=== PATIENT | female | born 1970 | race Caucasian/White ===

== ENCOUNTER → 2024-04-14 | Outpatient (CLI) | payer OTHER ==
[~2024-04-14] MED LIST: AMLO1TAB24 PO; BISA10SU27 RC; BUSP5TA PO; CLON0.2D6 TOP; SODI1TAB6 PO; VENTAER INH
== END ==
LOC: M ONCM 14:03
PROVIDERS: ATTEND Dietitian, Registered
DX: C15.9 Malignant neoplasm of esophagus, unspecified (principal); Z71.3 Dietary counseling and surveillance; Z68.1 Body mass index [BMI] 19.9 or less, adult

== ENCOUNTER → 2024-04-20 | Outpatient (CLI) | payer OTHER | LOC: M PLARAD 10:10 | PROVIDERS: ATTEND Internal Medicine Cardiovascular Disease | DX: C15.9 Malignant neoplasm of esophagus, unspecified (principal) | CPT/HCPCS: 78815; A9552 ==

== ENCOUNTER → 2024-04-29 | Outpatient (CLI) | payer OTHER ==
[~2024-04-29] MED LIST changes: +AUGM500T34 PO; +BACT800T5 PO; +DOCU5LIQ
== END ==
LOC: M ONCR 14:57
PROVIDERS: ATTEND General Practice
DX: C15.3 Malignant neoplasm of upper third of esophagus (principal); R50.9 Fever, unspecified; R91.8 Other nonspecific abnormal finding of lung field; Z71.2 Person consulting for explanation of examination or test findings; Z80.42 Family history of malignant neoplasm of prostate; Z80.8 Family history of malignant neoplasm of other organs or systems; Z80.1 Family history of malignant neoplasm of trachea, bronchus and lung; Z87.891 Personal history of nicotine dependence; J30.89 Other allergic rhinitis; Z79.899 Other long term (current) drug therapy
CPT/HCPCS: G0463; G2212

== ENCOUNTER → 2024-05-18 | Outpatient (CLI) | payer OTHER ==
[~2024-05-18] MED LIST changes: +LIDOCAINE 1% MDV 20ML VIAL As Ordered ONE
[2024-05-18 08:15] VITALS: TEMP 97.3
[2024-05-18 11:45] VITALS: BP 132/79; O2SAT 98
== END ==
LOC: M IRPRO 08:07
PROVIDERS: ATTEND Internal Medicine Medical Oncology
DX: R91.8 Other nonspecific abnormal finding of lung field (principal); C15.9 Malignant neoplasm of esophagus, unspecified

== ENCOUNTER → 2024-05-28 | Outpatient (CLI) | payer OTHER ==
[~2024-05-28] MED LIST changes: +ACET160L16 GT; -DOCU5LIQ; +DOCU5LIQ GT; -LIDOCAINE 1% MDV 20ML VIAL As Ordered ONE; +ONDA-284 PO; +POLY510P14; +PROC10TA5 PO
== END ==
LOC: M ONCR 14:04
PROVIDERS: ATTEND General Practice
DX: C15.3 Malignant neoplasm of upper third of esophagus (principal); R91.8 Other nonspecific abnormal finding of lung field; J30.89 Other allergic rhinitis; Z79.899 Other long term (current) drug therapy; Z87.891 Personal history of nicotine dependence; Z93.1 Gastrostomy status

== ENCOUNTER → 2024-05-28 | Outpatient (CLI) | payer OTHER ==
[~2024-05-28] MED LIST changes: -ACET160L16 GT; +DOCU5LIQ; -DOCU5LIQ GT; -ONDA-284 PO; -POLY510P14; -PROC10TA5 PO
== END ==
LOC: M RAD 15:27
PROVIDERS: ATTEND Internal Medicine Medical Oncology
DX: J98.4 Other disorders of lung (principal); C15.9 Malignant neoplasm of esophagus, unspecified

== ENCOUNTER 2024-06-04 13:53 | Outpatient (RCR) | payer OTHER | END 2024-06-10 | LOC: M ONCR 13:53 | PROVIDERS: ATTEND General Practice | DX: Z51.0 Encounter for antineoplastic radiation therapy (principal); C15.3 Malignant neoplasm of upper third of esophagus ==

== ENCOUNTER → 2024-06-22 | Outpatient (CLI) | payer OTHER ==
[~2024-06-22] MED LIST changes: +ACET160L16; +ONDA-284 PO; +POLY510P14; +PROC10TA5 PO
== END ==
LOC: M RAD 16:11
PROVIDERS: ATTEND Dietitian, Registered
DX: C15.9 Malignant neoplasm of esophagus, unspecified (principal); J98.4 Other disorders of lung

== ENCOUNTER 2024-06-29 15:36 | Inpatient (IN) | payer OTHER ==
[~2024-06-29] VITALS: Ht 162.6 cm; Wt 36.6 kg
[~2024-06-29 15:36] MED LIST changes: -ACET160L16; +ACET160L16 GT; -DOCU5LIQ; +DOCU5LIQ GT
[2024-06-29 16:20] LABS: BASO # 0.1 10^3/uL (0.0-0.2); BASO % 0.4 % (0.0-1.0); EOS % 0.1 % (0.0-3.0); HEMATOCRIT 32.7 % (36.0-47.0); HEMOGLOBIN 10.5 g/dl (12.0-15.5); LYMPH % 6.4 % (24.0-44.0); MEAN CORPUSCULAR HEMOGLOBIN 28.6 pg (27.0-33.0); MEAN CORPUSCULAR HGB CONC 32.1 g/dl (32.0-36.5); MEAN CORPUSCULAR VOLUME 89.1 fl (80.0-96.0); MONO # 1.7 10^3/uL (0.0-0.8); MONO % 10.3 % (2.0-8.0); NEUTROPHILS # 13.4 10^3/uL (1.5-8.5); NEUTROPHILS % 81.6 % (36.0-66.0); PLATELET COUNT, AUTOMATED 653 10^3/uL (150-450); RED BLOOD COUNT 3.67 10^6/uL (4.00-5.40); WHITE BLOOD COUNT 16.4 10^3/uL (4.0-10.0)
[2024-06-29 16:52] LABS: ALBUMIN 2.4 G/DL (3.2-5.2); ALKALINE PHOSPHATASE 140 U/L (46-116); ALT/SGPT 44 U/L (7.0-40); AST/SGOT 25 U/L (<34); BILIRUBIN,TOTAL 0.6 MG/DL (0.3-1.2); BLOOD UREA NITROGEN 13 MG/DL (9-23); CARBON DIOXIDE LEVEL 29 MMOL/L (20-31); CHLORIDE LEVEL 94 MMOL/L (98-107); CREATININE FOR GFR 0.26 MG/DL (0.55-1.30); GLOMERULAR FILTRATION RATE > 60.0 (>51); GLUCOSE, FASTING 108 MG/DL (60-100); POTASSIUM SERUM 4.4 MMOL/L (3.5-5.1); SODIUM LEVEL 127 MMOL/L (136-145); TOTAL PROTEIN 7.5 G/DL (5.7-8.2)
[2024-06-29 17:12] LABS: CK-MB VALUE MASS < 1.0 NG/ML (<3.6)
[2024-06-29 17:13] LABS: CPK CREATINE PHOSPHOKINASE 17 U/L (34-145); MB/CK RELATIVE INDEX 5.88 (< OR =4)
[2024-06-29] MEDS: NS 500 ML IV ONE (17:20)
[2024-06-29] MEDS: PIPERACILLIN/TAZOBACTAM SOD 4.5 GM in D5W MINI-BAG PLUS 50 ML IV ONE (17:20)
[2024-06-29] MEDS ORDERED: ISOVUE-370 76% 100ML VIAL As Ordered ONE (17:20)
[2024-06-29] MEDS: ACETAMINOPHEN TAB 650MG DOSE (2X325MG) PO ONE (17:20)
[2024-06-29 17:22] LABS: RSV AMPLIFICATION NEGATIVE (NEGATIVE)
[2024-06-29] MEDS: NS 1,000 ML IV SCH ×2 (19:03→20:00)
[2024-06-29] MEDS ORDERED: HOME MED LIST COMPLETE! XX SCH (19:10)
[2024-06-29 19:37] LABS: MAGNESIUM LEVEL 1.7 MG/DL (1.8-2.4)
[2024-06-29 19:51] LABS: PROCALCITONIN 0.12 ng/ml
[2024-06-29] MEDS ORDERED: VANCOMYCIN HCL IV ONE (20:00)
[2024-06-29] MEDS ORDERED: BISACODYL 10MG SUPP PR PRN (20:00)
[2024-06-29] MEDS ORDERED: VANCOMYCIN HCL IV SCH (20:00)
[2024-06-29] MEDS ORDERED: LEVALBUTEROL 1.25MG 0.5ML CONCENTRATE NEB INH PRN (20:00)
[2024-06-29] MEDS ORDERED: SODIUM CHLORIDE 0.9% INJ 10 ML SYR IV PRN (20:00)
[2024-06-29] MEDS ORDERED: FLUID PLACE HOLDER IV ONE (20:00)
[2024-06-29] MEDS ORDERED: FLUID PLACE HOLDER IV SCH (20:00)
[2024-06-29] MEDS ORDERED: MOM 30ML SUSPENSION UDC PEG PRN (20:00)
[2024-06-29] MEDS ORDERED: MAALOX 30 ML SUSP *UDC PO PRN (20:00)
[2024-06-29 20:11] LABS: HIV 1&2 SCREEN NEGATIVE (NEGATIVE)
[2024-06-29] MEDS ORDERED: VANCOMYCIN HCL 1,000 MG, VIAL MATE ADAPTER 1 EACH in NS 250 ML IV SCH (20:30)
[2024-06-29] MEDS: IPRATROPIUM 0.5MG/ALBUTEROL 2.5MG INH SOL UD 3ML (DUONEB) INH SCH (21:08)
[2024-06-29 22:10] LABS: VENOUS BASE EXCESS 0.8 (-2.0-2.0); VENOUS HCO3 24.1 MMOL/L (23.0-27.0); VENOUS O2 SATURATION 95.7 % (60.0-80.0); VENOUS PARTIAL PRESSURE CO2 33.7 mmHg (38.0-50.0); VENOUS PARTIAL PRESSURE O2 75.9 mmHg (30.0-50.0); VENOUS PH 7.472 UNITS (7.330-7.430); VENOUS STANDARD HCO3 25.2 MMOL/L; VENOUS TOTAL CO2 25.1 MMOL/L (24.0-28.0)
[2024-06-29] MEDS: VANCOMYCIN HCL 750 MG, VIAL MATE ADAPTER 1 EACH in D5W 250 ML IV ONE (22:37)
[2024-06-29] MEDS: DOCUSATE SOD LIQ 100MG/10ML UDC GT SCH (22:37)
[2024-06-29 22:39] LABS: INR 1.23; PARTIAL THROMBOPLASTIN TIME 26.3 SECONDS (24.8-34.2); PROTHROMBIN TIME 15.1 SECONDS (12.5-14.5)
[2024-06-29 23:59] VITALS: BP 107/72; TEMP 98.2; O2SAT 92
[2024-06-30] VITALS (17 sets, daily range): BP systolic 102–116; BP diastolic 58–70; PULSE 107; TEMP 97.6–101.4; O2SAT 84–95
[2024-06-30] MEDS: PIPERACILLIN/TAZOBACTAM SOD 4.5 GM in D5W MINI-BAG PLUS 50 ML IV SCH (00:45)
[2024-06-30] MEDS: LevoFLOXacin IV 750 MG in IV 1 EA IV SCH (04:17)
[2024-06-30] MEDS: HEPARIN SOD (PORCINE) 5000UNITS/ML 1ML VIAL/SYRINGE SC SCH (06:17)
[2024-06-30 06:39] LABS: HEMATOCRIT 25.3 % (36.0-47.0); MEAN CORPUSCULAR HEMOGLOBIN 29.2 pg (27.0-33.0); MEAN CORPUSCULAR HGB CONC 32.8 g/dl (32.0-36.5); MEAN CORPUSCULAR VOLUME 89.1 fl (80.0-96.0); PLATELET COUNT, AUTOMATED 559 10^3/uL (150-450); RED BLOOD COUNT 2.84 10^6/uL (4.00-5.40); WHITE BLOOD COUNT 12.3 10^3/uL (4.0-10.0)
[2024-06-30 06:45] LABS: HEMOGLOBIN 8.3 g/dl (12.0-15.5)
[2024-06-30 07:21] LABS: PROCALCITONIN 0.17 ng/ml
[2024-06-30 07:22] LABS: VANCOMYCIN RANDOM 6.6 UG/ML
[2024-06-30 07:31] LABS: ALBUMIN 1.7 G/DL (3.2-5.2); ALKALINE PHOSPHATASE 100 U/L (46-116); ALT/SGPT 28 U/L (7.0-40); AST/SGOT 14 U/L (<34); BILIRUBIN,TOTAL 0.5 MG/DL (0.3-1.2); BLOOD UREA NITROGEN 11 MG/DL (9-23); CALCIUM LEVEL 7.7 MG/DL (8.5-10.1); CARBON DIOXIDE LEVEL 25 MMOL/L (20-31); CHLORIDE LEVEL 97 MMOL/L (98-107); CREATININE FOR GFR 0.22 MG/DL (0.55-1.30); GLOMERULAR FILTRATION RATE > 60.0 (>51); GLUCOSE, FASTING 267 MG/DL (60-100); MAGNESIUM LEVEL 1.6 MG/DL (1.8-2.4); POTASSIUM SERUM 4.2 MMOL/L (3.5-5.1); SODIUM LEVEL 129 MMOL/L (136-145); TOTAL PROTEIN 5.4 G/DL (5.7-8.2)
[2024-06-30] MEDS ORDERED: VANCOMYCIN HCL 500 MG in D5W MINI-BAG PLUS 100 ML IV SCH (08:00)
[2024-06-30] MEDS ORDERED: SODIUM CHLORIDE 0.9% INJ 10 ML SYR IV SCH (09:00)
[2024-06-30] MEDS: MAG SULF 1GM/100ML (MAG RUN) 1 GM in IV 1 EA IV SCH (09:13)
[2024-06-30] MEDS: VANCOMYCIN HCL 1,000 MG, VIAL MATE ADAPTER 1 EACH in D5W 250 ML IV SCH (11:05)
[2024-06-30] MEDS ORDERED: INSULIN LISPRO (NovoLOG) PER UNIT SC SCH ×3 (12:00→21:00)
[2024-06-30] MEDS ORDERED: GLUCOSE 4 GM CHEW PO PRN ×2 (13:05→13:50)
[2024-06-30] MEDS ORDERED: DEXTROSE 50% 50ML SYRINGE IV PRN ×2 (13:05→13:50)
[2024-06-30] MEDS ORDERED: GLUCAGON INJ 1MG VIAL SC PRN ×2 (13:05→13:50)
[2024-06-30] MEDS ORDERED: VANCOMYCIN HCL 750 MG, VIAL MATE ADAPTER 1 EACH in D5W 250 ML IV SCH (16:00)
[2024-06-30] MEDS ORDERED: MAG SULF 1GM/100ML (MAG RUN) 1 GM in IV 1 EA IV SCH (16:00)
[2024-06-30] MEDS: INSULIN LISPRO (NovoLOG) PER UNIT SC SCH (17:30)
[2024-06-30] MEDS: ONDANSETRON 4MG 2ML VIAL IV ONE (21:11)
[2024-06-30] MEDS: BALMEX CREAM 60GM EXT SCH (21:12)
[2024-06-30] MEDS: ACETAMINOPHEN TAB 650MG DOSE (2X325MG) PEG PRN (23:37)
[2024-07-01 05:00] VITALS: BP 94/62; TEMP 98.1; O2SAT 95
[2024-07-01 05:21] LABS: BASO % 0.5 % (0.0-1.0); EOS % 0.2 % (0.0-3.0); HEMATOCRIT 25.5 % (36.0-47.0); HEMOGLOBIN 8.3 g/dl (12.0-15.5); LYMPH # 0.9 10^3/uL (1.5-5.0); MEAN CORPUSCULAR HEMOGLOBIN 28.3 pg (27.0-33.0); MEAN CORPUSCULAR HGB CONC 32.5 g/dl (32.0-36.5); MONO # 1.3 10^3/uL (0.0-0.8); MONO % 15.6 % (2.0-8.0); NEUTROPHILS # 5.8 10^3/uL (1.5-8.5); NEUTROPHILS % 72.1 % (36.0-66.0); PLATELET COUNT, AUTOMATED 560 10^3/uL (150-450); RED BLOOD COUNT 2.93 10^6/uL (4.00-5.40); WHITE BLOOD COUNT 8.1 10^3/uL (4.0-10.0)
[2024-07-01 05:47] LABS: BLOOD UREA NITROGEN 8 MG/DL (9-23); CALCIUM LEVEL 7.6 MG/DL (8.5-10.1); CARBON DIOXIDE LEVEL 28 MMOL/L (20-31); CHLORIDE LEVEL 98 MMOL/L (98-107); CREATININE FOR GFR 0.22 MG/DL (0.55-1.30); GLOMERULAR FILTRATION RATE > 60.0 (>51); GLUCOSE, FASTING 140 MG/DL (60-100); MAGNESIUM LEVEL 1.8 MG/DL (1.8-2.4); POTASSIUM SERUM 3.7 MMOL/L (3.5-5.1); SODIUM LEVEL 130 MMOL/L (136-145)
[2024-07-01 07:31] VITALS: BP 101/62; TEMP 96.6; O2SAT 94
[2024-07-01] MEDS ORDERED: LORazepam 0.5 MG TAB PO PRN (14:40)
[2024-07-01] MEDS: LORazepam 0.5 MG TAB GT PRN (14:59)
[2024-07-01 17:29] VITALS: BP 101/64; TEMP 98.8; O2SAT 96
[2024-07-01 20:42] VITALS: BP 98/58; TEMP 98.7; O2SAT 98
[2024-07-02 03:09] VITALS: BP 107/61; TEMP 97.2; O2SAT 93
[2024-07-02 05:57] LABS: BLOOD UREA NITROGEN 9 MG/DL (9-23); CALCIUM LEVEL 7.7 MG/DL (8.5-10.1); CARBON DIOXIDE LEVEL 25 MMOL/L (20-31); CHLORIDE LEVEL 99 MMOL/L (98-107); CREATININE FOR GFR 0.23 MG/DL (0.55-1.30); GLOMERULAR FILTRATION RATE > 60.0 (>51); GLUCOSE, FASTING 110 MG/DL (60-100); MAGNESIUM LEVEL 1.7 MG/DL (1.8-2.4); POTASSIUM SERUM 4.1 MMOL/L (3.5-5.1); SODIUM LEVEL 129 MMOL/L (136-145)
[2024-07-02 06:15] LABS: BASO % 0.4 % (0.0-1.0); EOS % 0.1 % (0.0-3.0); HEMOGLOBIN 8.4 g/dl (12.0-15.5); LYMPH # 0.9 10^3/uL (1.5-5.0); LYMPH % 9.6 % (24.0-44.0); MEAN CORPUSCULAR HEMOGLOBIN 28.4 pg (27.0-33.0); MEAN CORPUSCULAR HGB CONC 32.3 g/dl (32.0-36.5); MEAN CORPUSCULAR VOLUME 87.8 fl (80.0-96.0); MONO # 1.3 10^3/uL (0.0-0.8); MONO % 14.9 % (2.0-8.0); NEUTROPHILS # 6.6 10^3/uL (1.5-8.5); PLATELET COUNT, AUTOMATED 593 10^3/uL (150-450); RED BLOOD COUNT 2.96 10^6/uL (4.00-5.40); WHITE BLOOD COUNT 8.9 10^3/uL (4.0-10.0)
[2024-07-02 07:42] VITALS: BP 96/54; TEMP 97.4; O2SAT 96
[2024-07-02] MEDS ORDERED: SODIUM CHLORIDE 1 GM TAB PO SCH (09:00)
[2024-07-02] MEDS ORDERED: busPIRone 5 MG TAB PO SCH (09:00)
[2024-07-02] MEDS ORDERED: FUROSEMIDE 10MG PER 1/2 TABLET PO SCH (09:00)
[2024-07-02] MEDS: SODIUM CHLORIDE 1 GM TAB GT SCH (09:00)
[2024-07-02] MEDS ORDERED: MAALOX 30 ML SUSP *UDC GT PRN (09:30)
[2024-07-02] MEDS: MAG SULF 1GM/100ML (MAG RUN) 1 GM in IV 1 EA IV SCH (11:20)
[2024-07-02] MEDS: FUROSEMIDE 10MG PER 1/2 TABLET GT SCH (11:55)
[2024-07-02] MEDS: PROCHLORPERAZINE 5MG TAB GT SCH (11:56)
[2024-07-02] MEDS: busPIRone 5 MG TAB GT SCH (11:56)
[2024-07-02] MEDS: ONDANSETRON 4MG ORAL DISINTEGRATING TAB GT SCH (11:56)
[2024-07-02] MEDS ORDERED: PROCHLORPERAZINE 5MG TAB PO SCH (12:00)
[2024-07-02] MEDS ORDERED: ONDANSETRON 4MG ORAL DISINTEGRATING TAB PO SCH (12:00)
[2024-07-02 18:09] VITALS: BP 98/56; TEMP 97.6; O2SAT 97
[2024-07-02 19:21] VITALS: BP 96/53; TEMP 98; O2SAT 93
[2024-07-02 23:11] VITALS: BP 106/57; TEMP 98; O2SAT 94
[2024-07-03 03:08] VITALS: BP 97/53; TEMP 96.9; O2SAT 94
[2024-07-03 04:18] LABS: BASO % 0.5 % (0.0-1.0); EOS % 0.3 % (0.0-3.0); HEMATOCRIT 25.4 % (36.0-47.0); HEMOGLOBIN 8.2 g/dl (12.0-15.5); LYMPH # 0.9 10^3/uL (1.5-5.0); LYMPH % 11.9 % (24.0-44.0); MEAN CORPUSCULAR HEMOGLOBIN 28.2 pg (27.0-33.0); MEAN CORPUSCULAR HGB CONC 32.3 g/dl (32.0-36.5); MEAN CORPUSCULAR VOLUME 87.3 fl (80.0-96.0); MONO % 12.9 % (2.0-8.0); NEUTROPHILS # 5.7 10^3/uL (1.5-8.5); NEUTROPHILS % 73.1 % (36.0-66.0); PLATELET COUNT, AUTOMATED 624 10^3/uL (150-450); RED BLOOD COUNT 2.91 10^6/uL (4.00-5.40); WHITE BLOOD COUNT 7.7 10^3/uL (4.0-10.0)
[2024-07-03 04:41] LABS: BLOOD UREA NITROGEN 9 MG/DL (9-23); CALCIUM LEVEL 7.8 MG/DL (8.5-10.1); CARBON DIOXIDE LEVEL 25 MMOL/L (20-31); CHLORIDE LEVEL 102 MMOL/L (98-107); CREATININE FOR GFR 0.23 MG/DL (0.55-1.30); GLOMERULAR FILTRATION RATE > 60.0 (>51); GLUCOSE, FASTING 121 MG/DL (60-100); MAGNESIUM LEVEL 1.8 MG/DL (1.8-2.4); POTASSIUM SERUM 4.3 MMOL/L (3.5-5.1); SODIUM LEVEL 131 MMOL/L (136-145)
[2024-07-03 07:25] VITALS: BP 97/60; TEMP 97; O2SAT 95
[2024-07-03] MEDS ORDERED: MAG SULF 1GM/100ML (MAG RUN) 1 GM in IV 1 EA IV SCH (07:50)
[2024-07-03] MEDS: MAG SULF 1GM/100ML (MAG RUN) 1 GM in IV 1 EA IV SCH (08:53)
[2024-07-03] MEDS: AMPICILLIN SOD/SULBACTAM SOD 3 GM in D5W MINI-BAG PLUS 100 ML IV SCH (11:55)
[2024-07-03 12:00] VITALS: BP 100/59; TEMP 97; O2SAT 95
[2024-07-03 17:55] VITALS: BP 105/65; TEMP 97.3; O2SAT 95
[2024-07-03 19:19] VITALS: BP 101/59; TEMP 97.3; O2SAT 95
[2024-07-04 03:09] VITALS: BP 112/66; TEMP 97.9; O2SAT 94
[2024-07-04 06:13] LABS: BASO % 0.4 % (0.0-1.0); EOS # 0.1 10^3/uL (0.0-0.5); EOS % 0.6 % (0.0-3.0); HEMATOCRIT 27.4 % (36.0-47.0); HEMOGLOBIN 8.7 g/dl (12.0-15.5); LYMPH % 12.4 % (24.0-44.0); MEAN CORPUSCULAR HEMOGLOBIN 27.9 pg (27.0-33.0); MEAN CORPUSCULAR HGB CONC 31.8 g/dl (32.0-36.5); MEAN CORPUSCULAR VOLUME 87.8 fl (80.0-96.0); MONO % 12.6 % (2.0-8.0); NEUTROPHILS # 5.6 10^3/uL (1.5-8.5); NEUTROPHILS % 72.1 % (36.0-66.0); PLATELET COUNT, AUTOMATED 651 10^3/uL (150-450); RED BLOOD COUNT 3.12 10^6/uL (4.00-5.40); WHITE BLOOD COUNT 7.7 10^3/uL (4.0-10.0)
[2024-07-04 06:40] LABS: BLOOD UREA NITROGEN 9 MG/DL (9-23); CALCIUM LEVEL 8.1 MG/DL (8.5-10.1); CARBON DIOXIDE LEVEL 26 MMOL/L (20-31); CHLORIDE LEVEL 101 MMOL/L (98-107); CREATININE FOR GFR 0.24 MG/DL (0.55-1.30); GLOMERULAR FILTRATION RATE > 60.0 (>51); GLUCOSE, FASTING 118 MG/DL (60-100); MAGNESIUM LEVEL 1.7 MG/DL (1.8-2.4); POTASSIUM SERUM 4.6 MMOL/L (3.5-5.1); SODIUM LEVEL 132 MMOL/L (136-145)
[2024-07-04 07:28] VITALS: BP 130/70; TEMP 98.6; O2SAT 94
[2024-07-04] MEDS: MAG SULF 1GM/100ML (MAG RUN) 1 GM in IV 1 EA IV SCH (11:55)
[2024-07-04 12:00] VITALS: BP 124/70; TEMP 98.4; O2SAT 95
[2024-07-04 15:56] VITALS: BP 100/65; TEMP 97.9; O2SAT 95
[2024-07-04 19:26] VITALS: BP 128/67; TEMP 97; O2SAT 99
[2024-07-04] MEDS: MAGNESIUM OXIDE 400MG TAB (MAG-OX) PO SCH (21:38)
[2024-07-05 03:03] VITALS: BP 145/77; TEMP 97.2; O2SAT 94
[2024-07-05 07:40] VITALS: BP 146/85; TEMP 96.9; O2SAT 93
[2024-07-05 08:42] LABS: BASO % 0.5 % (0.0-1.0); EOS # 0.1 10^3/uL (0.0-0.5); EOS % 0.6 % (0.0-3.0); HEMATOCRIT 30.6 % (36.0-47.0); HEMOGLOBIN 9.9 g/dl (12.0-15.5); LYMPH % 11.6 % (24.0-44.0); MEAN CORPUSCULAR HEMOGLOBIN 28.4 pg (27.0-33.0); MEAN CORPUSCULAR HGB CONC 32.4 g/dl (32.0-36.5); MEAN CORPUSCULAR VOLUME 87.9 fl (80.0-96.0); MONO # 0.8 10^3/uL (0.0-0.8); MONO % 9.7 % (2.0-8.0); NEUTROPHILS # 6.6 10^3/uL (1.5-8.5); NEUTROPHILS % 75.5 % (36.0-66.0); PLATELET COUNT, AUTOMATED 682 10^3/uL (150-450); RED BLOOD COUNT 3.48 10^6/uL (4.00-5.40); WHITE BLOOD COUNT 8.7 10^3/uL (4.0-10.0)
[2024-07-05 09:06] LABS: BLOOD UREA NITROGEN 9 MG/DL (9-23); CALCIUM LEVEL 8.1 MG/DL (8.5-10.1); CARBON DIOXIDE LEVEL 27 MMOL/L (20-31); CHLORIDE LEVEL 97 MMOL/L (98-107); CREATININE FOR GFR 0.23 MG/DL (0.55-1.30); GLOMERULAR FILTRATION RATE > 60.0 (>51); GLUCOSE, FASTING 209 MG/DL (60-100); MAGNESIUM LEVEL 1.5 MG/DL (1.8-2.4); POTASSIUM SERUM 4.5 MMOL/L (3.5-5.1); SODIUM LEVEL 127 MMOL/L (136-145)
[2024-07-05] MEDS: MAG SULF 1GM/100ML (MAG RUN) 1 GM in IV 1 EA IV SCH (12:36)
[2024-07-05] MEDS: MOM 30ML SUSPENSION UDC GT PRN (12:51)
[2024-07-05 16:17] VITALS: BP 119/76; TEMP 98.5; O2SAT 95
[2024-07-06] VITALS: BP 128/73; TEMP 97.2; O2SAT 94
[2024-07-06 05:48] LABS: BASO # 0.1 10^3/uL (0.0-0.2); BASO % 0.6 % (0.0-1.0); EOS # 0.1 10^3/uL (0.0-0.5); EOS % 0.8 % (0.0-3.0); HEMATOCRIT 32.2 % (36.0-47.0); HEMOGLOBIN 10.4 g/dl (12.0-15.5); LYMPH # 1.1 10^3/uL (1.5-5.0); LYMPH % 13.7 % (24.0-44.0); MEAN CORPUSCULAR HEMOGLOBIN 28.4 pg (27.0-33.0); MEAN CORPUSCULAR HGB CONC 32.3 g/dl (32.0-36.5); MONO # 0.9 10^3/uL (0.0-0.8); MONO % 10.4 % (2.0-8.0); NEUTROPHILS % 72.3 % (36.0-66.0); PLATELET COUNT, AUTOMATED 688 10^3/uL (150-450); RED BLOOD COUNT 3.66 10^6/uL (4.00-5.40); WHITE BLOOD COUNT 8.3 10^3/uL (4.0-10.0)
[2024-07-06 05:54] LABS: BLOOD UREA NITROGEN 12 MG/DL (9-23); CALCIUM LEVEL 8.7 MG/DL (8.5-10.1); CARBON DIOXIDE LEVEL 26 MMOL/L (20-31); CHLORIDE LEVEL 98 MMOL/L (98-107); CREATININE FOR GFR 0.25 MG/DL (0.55-1.30); GLOMERULAR FILTRATION RATE > 60.0 (>51); GLUCOSE, FASTING 123 MG/DL (60-100); POTASSIUM SERUM 5.3 MMOL/L (3.5-5.1); SODIUM LEVEL 129 MMOL/L (136-145)
[2024-07-06 07:56] VITALS: BP 123/80; TEMP 97.6; O2SAT 97
[2024-07-06] MEDS: FUROSEMIDE 20MG/2ML VIAL IV ONE (10:25)
[2024-07-06] MEDS: NS 500 ML IV ONE (10:25)
[2024-07-06] MEDS: AUGMENTIN 875 MG TAB GT SCH (14:46)
[2024-07-06 16:00] VITALS: BP 126/74; TEMP 97.4; O2SAT 95
[2024-07-06 16:47] LABS: BLOOD UREA NITROGEN 14 MG/DL (9-23); CALCIUM LEVEL 8.8 MG/DL (8.5-10.1); CARBON DIOXIDE LEVEL 28 MMOL/L (20-31); CHLORIDE LEVEL 97 MMOL/L (98-107); CREATININE FOR GFR 0.24 MG/DL (0.55-1.30); GLOMERULAR FILTRATION RATE > 60.0 (>51); GLUCOSE, FASTING 116 MG/DL (60-100); POTASSIUM SERUM 4.9 MMOL/L (3.5-5.1); SODIUM LEVEL 128 MMOL/L (136-145)
[2024-07-06] MEDS ORDERED: AUGMENTIN 875 MG TAB PO SCH (21:00)
[2024-07-07 00:13] VITALS: BP 133/78; TEMP 97.2; O2SAT 98
[2024-07-07 04:25] VITALS: BP 125/77; TEMP 98.1; O2SAT 96
[2024-07-07 06:08] LABS: BASO # 0.1 10^3/uL (0.0-0.2); BASO % 0.6 % (0.0-1.0); EOS # 0.1 10^3/uL (0.0-0.5); EOS % 0.8 % (0.0-3.0); HEMATOCRIT 31.1 % (36.0-47.0); HEMOGLOBIN 9.9 g/dl (12.0-15.5); LYMPH # 1.1 10^3/uL (1.5-5.0); LYMPH % 12.6 % (24.0-44.0); MEAN CORPUSCULAR HEMOGLOBIN 28.2 pg (27.0-33.0); MEAN CORPUSCULAR HGB CONC 31.8 g/dl (32.0-36.5); MEAN CORPUSCULAR VOLUME 88.6 fl (80.0-96.0); MONO # 0.8 10^3/uL (0.0-0.8); MONO % 8.5 % (2.0-8.0); NEUTROPHILS # 6.8 10^3/uL (1.5-8.5); NEUTROPHILS % 75.6 % (36.0-66.0); PLATELET COUNT, AUTOMATED 706 10^3/uL (150-450); RED BLOOD COUNT 3.51 10^6/uL (4.00-5.40)
[2024-07-07 06:30] LABS: BLOOD UREA NITROGEN 13 MG/DL (9-23); CALCIUM LEVEL 8.8 MG/DL (8.5-10.1); CARBON DIOXIDE LEVEL 28 MMOL/L (20-31); CHLORIDE LEVEL 98 MMOL/L (98-107); CREATININE FOR GFR 0.26 MG/DL (0.55-1.30); GLOMERULAR FILTRATION RATE > 60.0 (>51); GLUCOSE, FASTING 108 MG/DL (60-100); POTASSIUM SERUM 4.8 MMOL/L (3.5-5.1); SODIUM LEVEL 130 MMOL/L (136-145)
[2024-07-07] MEDS ORDERED: AMOX875T2 PO (11:47)
[2024-07-07 11:54] VITALS: BP 123/76; TEMP 98.8; O2SAT 96
[2024-07-07] MEDS ORDERED: AMOX875T2 GT (11:55)
[2024-07-07] MEDS ORDERED: ASPI-655 GT (11:55)
[2024-07-07 13:22] LABS: QuantiFERON-TB Gold Plus NEGATIVE (NEGATIVE)
== END 2024-07-07 13:14 | disposition home health service (06) | DRG 720 ==
LOC: M ED 15:36 → M ED INP 19:56 → M PCU 23:49 → M MS5PR 07-01 13:47 → M PCU 07-01 13:57 → M MSPAV 07-07 04:15
PROVIDERS: ADMIT Preventive Medicine Undersea and Hyperbaric Medicine; ATTEND Internal Medicine
PROC: 0DW6XUZ Revision of Feeding Device in Stomach, External Approach (ICD-10-PCS; principal; 2024-06-30)
DX: A41.9 Sepsis, unspecified organism (principal); C15.9 Malignant neoplasm of esophagus, unspecified; J85.1 Abscess of lung with pneumonia; E22.2 Syndrome of inappropriate secretion of antidiuretic hormone; I10 Essential (primary) hypertension; D64.9 Anemia, unspecified; T85.528A Displacement of other gastrointestinal prosthetic devices, implants and grafts, initial encounter; N39.0 Urinary tract infection, site not specified; I25.2 Old myocardial infarction; Z83.3 Family history of diabetes mellitus; Z87.891 Personal history of nicotine dependence; Z79.899 Other long term (current) drug therapy; E11.9 Type 2 diabetes mellitus without complications; I25.10 Atherosclerotic heart disease of native coronary artery without angina pectoris

== ENCOUNTER 2024-07-10 13:28 | Outpatient (RCR) | payer OTHER ==
[~2024-07-10 13:28] MED LIST changes: +AMOX875T2 GT; +AMOX875T2 PO; +ASPI-655 GT
[2024-07-22] MEDS ORDERED: LIDO15SO8 PO (16:22)
== END 2024-07-11 ==
LOC: M ONCR 13:28
PROVIDERS: ATTEND General Practice
DX: Z51.0 Encounter for antineoplastic radiation therapy (principal); C15.3 Malignant neoplasm of upper third of esophagus

== ENCOUNTER 2024-07-31 15:30 | Outpatient (RCR) | payer OTHER ==
[~2024-07-31 15:30] MED LIST changes: +LIDO15SO8 PO
== END 2024-08-10 ==
LOC: M ONCR 15:30
PROVIDERS: ATTEND General Practice
DX: Z51.0 Encounter for antineoplastic radiation therapy (principal); C15.3 Malignant neoplasm of upper third of esophagus

== ENCOUNTER → 2024-09-08 | Outpatient (CLI) | payer OTHER | LOC: M ONCM 07:24 | PROVIDERS: ATTEND Dietitian, Registered | DX: C15.9 Malignant neoplasm of esophagus, unspecified (principal); Z71.3 Dietary counseling and surveillance; Z68.1 Body mass index [BMI] 19.9 or less, adult ==

== ENCOUNTER → 2024-09-10 | Outpatient (CLI) | payer OTHER ==
[~2024-09-10] MED LIST changes: +GASTROGRAFIN SOLUTION 30ML As Ordered ONE; +ISOVUE-370 76% 100ML VIAL As Ordered ONE
== END ==
LOC: M RAD 08:55
PROVIDERS: ATTEND Internal Medicine Medical Oncology
DX: C15.9 Malignant neoplasm of esophagus, unspecified (principal)
CPT/HCPCS: 71260; 74177; Q9963; Q9967

== ENCOUNTER → 2024-09-28 | Outpatient (CLI) | payer OTHER ==
[~2024-09-28] MED LIST changes: -GASTROGRAFIN SOLUTION 30ML As Ordered ONE; -ISOVUE-370 76% 100ML VIAL As Ordered ONE
== END ==
LOC: M ONCR 15:12
PROVIDERS: ATTEND General Practice
DX: C15.3 Malignant neoplasm of upper third of esophagus (principal); J18.9 Pneumonia, unspecified organism; Z87.891 Personal history of nicotine dependence; Z79.82 Long term (current) use of aspirin; Z79.899 Other long term (current) drug therapy; Z92.21 Personal history of antineoplastic chemotherapy; Z92.3 Personal history of irradiation; J30.89 Other allergic rhinitis

== ENCOUNTER → 2024-12-11 | Outpatient (CLI) | payer OTHER | LOC: M ONCR 14:23 | PROVIDERS: ATTEND General Practice | DX: C15.3 Malignant neoplasm of upper third of esophagus (principal); J18.1 Lobar pneumonia, unspecified organism; Z87.891 Personal history of nicotine dependence; Z92.3 Personal history of irradiation; Z92.21 Personal history of antineoplastic chemotherapy; Z79.899 Other long term (current) drug therapy; Z79.82 Long term (current) use of aspirin; Z93.1 Gastrostomy status ==

== ENCOUNTER → 2025-01-11 | Outpatient (CLI) | payer OTHER | LOC: M PLARAD 12:55 | PROVIDERS: ATTEND General Practice | DX: C15.3 Malignant neoplasm of upper third of esophagus (principal) | CPT/HCPCS: 78815; A9552 ==

== ENCOUNTER → 2025-01-15 | Outpatient (CLI) | payer OTHER ==
[~2025-01-15] MED LIST changes: +ACETAMINOPHEN *IV* 1,000 MG in IV 1 EA IV ONE; +ISOVUE-300 61% 100ML VIAL As Ordered ONE; +LIDOCAINE 2% JELLY 6ML SYRINGE As Ordered ONE; +MORPHINE 2 MG/ML 1ML VIAL IV PRN
[2025-01-15 08:55] VITALS: BP 169/93; TEMP 98.1; O2SAT 98
[2025-01-15] MEDS: ISOVUE-300 61% 100ML VIAL IV ONE (11:02)
[2025-01-15] MEDS: LIDOCAINE 2% JELLY 6ML SYRINGE TOP ONE (11:03)
== END ==
LOC: M IRPRO 08:37
PROVIDERS: ATTEND General Practice
DX: C15.3 Malignant neoplasm of upper third of esophagus (principal)
CPT/HCPCS: 49450; Q9967

== ENCOUNTER → 2025-01-26 | Outpatient (CLI) | payer OTHER ==
[~2025-01-26] MED LIST changes: -ACETAMINOPHEN *IV* 1,000 MG in IV 1 EA IV ONE; -ISOVUE-300 61% 100ML VIAL As Ordered ONE; -LIDOCAINE 2% JELLY 6ML SYRINGE As Ordered ONE; -MORPHINE 2 MG/ML 1ML VIAL IV PRN
== END ==
LOC: M LAB 11:07
PROVIDERS: ATTEND Internal Medicine Pulmonary Disease
DX: R59.0 Localized enlarged lymph nodes (principal)

== ENCOUNTER → 2025-02-19 | Outpatient (CLI) | payer OTHER | LOC: M RAD 14:32 | PROVIDERS: ATTEND Internal Medicine Pulmonary Disease | DX: R59.0 Localized enlarged lymph nodes (principal) ==

== ENCOUNTER 2025-02-24 09:04 | Day surgery (SDC) | payer OTHER ==
[~2025-02-24] VITALS: Ht 157.5 cm; Wt 51.7 kg
[2025-02-24] MEDS ORDERED: LR 1,000 ML IV SCH ×2 (09:35→11:25)
[2025-02-24] MEDS: EPINEPHrine 1MG/10ML SYRINGE 1.5IN As Ordered ONE (10:21)
[2025-02-24] MEDS: THROMBIN 5,000 UNITS VIAL As Ordered ONE (10:21)
[2025-02-24] MEDS ORDERED: LIDOCAINE 2% 100MG/5ML SDV (FOR ANES.) As Ordered ONE (11:00)
[2025-02-24] MEDS ORDERED: fentaNYL 100 MCG/2 ML INJECTION As Ordered ONE (11:00)
[2025-02-24] MEDS ORDERED: ACETAMINOPHEN 1000MG/100ML IV BAG As Ordered ONE (11:00)
[2025-02-24] MEDS ORDERED: ONDANSETRON 4MG 2ML VIAL As Ordered ONE (11:00)
[2025-02-24] MEDS ORDERED: SUGAMMADEX SODIUM 500 MG/5 ML VIAL (BRIDION) As Ordered ONE (11:00)
[2025-02-24] MEDS ORDERED: MIDAZOLAM INJ 2MG/2ML VIAL As Ordered ONE (11:00)
[2025-02-24] MEDS ORDERED: ROCURONIUM BROMIDE 50MG/5ML VIAL As Ordered ONE (11:00)
[2025-02-24] MEDS ORDERED: propofoL 200 MG/20 ML VIAL As Ordered ONE (11:00)
[2025-02-24] MEDS: CETACAINE SPRAY 5GM As Ordered ONE (11:01)
[2025-02-24] MEDS ORDERED: oxyCODONE 5MG TAB PO PRN (11:25)
[2025-02-24] MEDS ORDERED: ONDANSETRON 4MG 2ML VIAL IV PRN (11:25)
[2025-02-24] MEDS ORDERED: fentaNYL 100 MCG/2 ML INJECTION IV PRN (11:25)
[2025-02-24 12:20] VITALS: BP 165/82; TEMP 98.5; O2SAT 97
== END 2025-02-24 12:24 | disposition home or self-care (01) ==
LOC: M SDC 09:04
PROVIDERS: ATTEND Internal Medicine Pulmonary Disease
DX: R59.0 Localized enlarged lymph nodes (principal); R91.8 Other nonspecific abnormal finding of lung field; I25.2 Old myocardial infarction; Z93.1 Gastrostomy status; Z79.899 Other long term (current) drug therapy; Z87.891 Personal history of nicotine dependence
CPT/HCPCS: 31629; 31652; 71045; 88173; 88305; J0131; J1100; J2250; J2405; J3010

== ENCOUNTER → 2025-03-10 | Outpatient (CLI) | payer OTHER | LOC: M ONCR 13:48 | PROVIDERS: ATTEND General Practice | DX: R59.0 Localized enlarged lymph nodes (principal); R91.8 Other nonspecific abnormal finding of lung field ==

== ENCOUNTER → 2025-06-10 | Outpatient (CLI) | payer OTHER ==
[~2025-06-10] MED LIST changes: +BUSP5TA GT; -BUSP5TA PO; +ISOVUE-370 76% 100 ML VIAL As Ordered ONE; +ONDA-84 PO; +SODI1TAB6 GT; -SODI1TAB6 PO
== END ==
LOC: M RAD 15:13
PROVIDERS: ATTEND Internal Medicine Medical Oncology
DX: C15.9 Malignant neoplasm of esophagus, unspecified (principal); Z93.1 Gastrostomy status; I70.0 Atherosclerosis of aorta; Z95.828 Presence of other vascular implants and grafts; R59.0 Localized enlarged lymph nodes; M41.9 Scoliosis, unspecified
CPT/HCPCS: 71260; 74177; Q9967

== ENCOUNTER 2025-08-08 16:47 | Emergency (ER) | payer OTHER ==
[~2025-08-08] VITALS: Ht 162.6 cm; Wt 59.7 kg
[~2025-08-08 16:47] MED LIST changes: -ASPI-655 GT; +ASPI-737 GT; -ISOVUE-370 76% 100 ML VIAL As Ordered ONE; +LIDO30CR18 TOP
[2025-08-08 17:02] VITALS: TEMP 98.1
[2025-08-09] MEDS: GASTROGRAFIN SOLUTION 30 ML PO ONE (00:21)
[2025-08-09 02:17] VITALS: BP 136/78; O2SAT 97
== END 2025-08-09 02:30 | disposition home or self-care (01) ==
LOC: M ED 16:47
DX: K94.23 Gastrostomy malfunction (principal); I25.2 Old myocardial infarction; J45.909 Unspecified asthma, uncomplicated; C34.90 Malignant neoplasm of unspecified part of unspecified bronchus or lung; Z79.1 Long term (current) use of non-steroidal anti-inflammatories (NSAID); Z79.51 Long term (current) use of inhaled steroids; Z79.899 Other long term (current) drug therapy
CPT/HCPCS: 74018; 99284; Q9963

== ENCOUNTER 2025-08-10 08:24 | Emergency (ER) | payer OTHER ==
[~2025-08-10] VITALS: Ht 165.1 cm; Wt 59.1 kg
[2025-08-10 08:44] VITALS: TEMP 98.7
[2025-08-10] MEDS ORDERED: HOME MED LIST COMPLETE! XX SCH (14:15)
[2025-08-10 17:01] VITALS: BP 180/78; O2SAT 96
[2025-08-10] MEDS: LIDOCAINE 1% MDV 20 ML VIAL SC SCH (17:22)
== END 2025-08-10 17:03 | disposition home or self-care (01) ==
LOC: M ED 08:24
DX: K94.23 Gastrostomy malfunction (principal); I25.119 Atherosclerotic heart disease of native coronary artery with unspecified angina pectoris; I25.2 Old myocardial infarction; J44.9 Chronic obstructive pulmonary disease, unspecified; Z87.891 Personal history of nicotine dependence; Z79.1 Long term (current) use of non-steroidal anti-inflammatories (NSAID); Z79.51 Long term (current) use of inhaled steroids; Z79.899 Other long term (current) drug therapy
CPT/HCPCS: 74176; 96372; 99284; G0463

== ENCOUNTER → 2025-09-09 | Outpatient (CLI) | payer OTHER ==
[~2025-09-09] MED LIST changes: +CEPH500C; +ISOVUE-370 76% 100 ML VIAL ONE; +METO1TAB87
== END ==
LOC: M PLAIMG 14:07
PROVIDERS: ATTEND Internal Medicine Medical Oncology
DX: C15.9 Malignant neoplasm of esophagus, unspecified (principal); J43.9 Emphysema, unspecified; J98.11 Atelectasis; R59.0 Localized enlarged lymph nodes; I31.39 Other pericardial effusion (noninflammatory); N32.89 Other specified disorders of bladder
CPT/HCPCS: 71260; 74177; Q9967

== ENCOUNTER → 2025-09-13 | Outpatient (POV) | payer OTHER ==
[~2025-09-13] MED LIST changes: -ISOVUE-370 76% 100 ML VIAL ONE
== END ==
LOC: M IRPOV 07:42
PROVIDERS: ATTEND Registered Nurse School
DX: K31.6 Fistula of stomach and duodenum (principal); T81.31XA Disruption of external operation (surgical) wound, not elsewhere classified, initial encounter; C15.9 Malignant neoplasm of esophagus, unspecified; Z92.21 Personal history of antineoplastic chemotherapy

== ENCOUNTER → 2025-09-21 | Outpatient (CLI) | payer OTHER ==
[~2025-09-21] MED LIST changes: +ALBU8.5H INH; +METO10TA3 PO; -METO1TAB87; +METO1TAB87 PO; +POTA-298 PO
== END ==
LOC: M ONCM 06:48
PROVIDERS: ATTEND Dietitian, Registered
DX: C15.9 Malignant neoplasm of esophagus, unspecified (principal); Z71.3 Dietary counseling and surveillance; Z68.20 Body mass index [BMI] 20.0-20.9, adult

== ENCOUNTER 2025-09-25 19:45 | Inpatient (IN) | payer OTHER, MEDICAID ==
[~2025-09-25] VITALS: Ht 165.1 cm; Wt 52.1 kg
[~2025-09-25 19:45] MED LIST changes: -ALBU8.5H INH; -METO10TA3 PO; -POTA-298 PO
[2025-09-25 20:32] LABS: BASO # 0.1 10^3/uL (0.0-0.2); BASO % 0.6 % (0.0-1.0); EOS # 0.1 10^3/uL (0.0-0.5); EOS % 1.0 % (0.0-3.0); LYMPH # 1.5 10^3/uL (1.5-5.0); LYMPH % 13.3 % (24.0-44.0); MONO # 0.9 10^3/uL (0.0-0.8); MONO % 7.6 % (2.0-8.0); NEUTROPHILS # 8.9 10^3/uL (1.5-8.5); NEUTROPHILS % 77.1 % (36.0-66.0); PLATELET COUNT, AUTOMATED 349 10^3/uL (150-450)
[2025-09-25] MEDS: ACETAMINOPHEN *IV* 1,000 MG in IV 1 EA IV ONE (20:44)
[2025-09-25 20:57] LABS: CK-MB VALUE MASS 1.8 NG/ML (<3.6)
[2025-09-25 21:12] LABS: ALT/SGPT 172 U/L (7.0-40); AST/SGOT 203 U/L (<34); CALCIUM LEVEL 8.2 MG/DL (8.5-10.1); CARBON DIOXIDE LEVEL 17 MMOL/L (20-31); CHLORIDE LEVEL 101 MMOL/L (98-107); CPK CREATINE PHOSPHOKINASE 56 U/L (34-145); CREATININE FOR GFR 0.46 MG/DL (0.55-1.30); GLOMERULAR FILTRATION RATE > 90.0 (>51); MB/CK RELATIVE INDEX 3.21 (< OR =4); POTASSIUM SERUM 4.1 MMOL/L (3.5-5.1); SODIUM LEVEL 136 MMOL/L (136-145)
[2025-09-25] MEDS ORDERED: ISOVUE-370 76% 100 ML VIAL As Ordered ONE (21:33)
[2025-09-25 21:48] LABS: OSMOLALITY SERUM 289 MOSM/KG (275-295)
[2025-09-25 22:04] LABS: INR 3.16
[2025-09-25 22:04] LABS: PHOSPHORUS LEVEL 3.2 MG/DL (2.5-4.9)
[2025-09-25 22:06] LABS: ACETONE/KETONE > 4.50 MMOL/L (0.02-0.27)
[2025-09-25] MEDS: NS (Normal Saline) 0.9% 1,000 ML IV ONE (22:43)
[2025-09-25 22:46] LABS: VENOUS BASE EXCESS -8.0 (-2.0-2.0); VENOUS HCO3 15.4 MMOL/L (23.0-27.0); VENOUS O2 SATURATION 91.8 % (60.0-80.0); VENOUS PARTIAL PRESSURE CO2 26.7 mmHg (38.0-50.0); VENOUS PARTIAL PRESSURE O2 60.9 mmHg (30.0-50.0); VENOUS PH 7.379 UNITS (7.330-7.430); VENOUS STANDARD HCO3 18.0 MMOL/L; VENOUS TOTAL CO2 16.2 MMOL/L (24.0-28.0)
[2025-09-26] VITALS (9 sets, daily range): BP systolic 139–172; BP diastolic 78–96; TEMP 97–97.5; O2SAT 97–99
[2025-09-26 01:21] LABS: INR 3.8
[2025-09-26] MEDS: PHYTONADIONE INJection 10 MG in NS 50 ML IV ONE (02:32)
[2025-09-26] MEDS: NS (Normal Saline) 0.9% 1,000 ML IV SCH (03:47)
[2025-09-26] MEDS ORDERED: POTA-298 PO (04:36)
[2025-09-26] MEDS ORDERED: METO10TA3 PO (04:36)
[2025-09-26] MEDS ORDERED: ALBU8.5H INH (04:38)
[2025-09-26] MEDS ORDERED: ONDA-84 PO (04:38)
[2025-09-26] MEDS ORDERED: HOME MED LIST COMPLETE! XX SCH (04:40)
[2025-09-26] MEDS: cloNIDine HCL 0.2 MG/24 HR PATCH TOP SCH (07:58)
[2025-09-26] MEDS ORDERED: ENOXAPARIN 30 MG/0.3 ML SYRINGE (J1650 PER 10MG) SC SCH (09:00)
[2025-09-26] MEDS ORDERED: D5W/0.9% SODIUM CHLORIDE 1,000 ML IV SCH (13:15)
[2025-09-26 15:18] LABS: ALT/SGPT 139 U/L (7.0-40); AST/SGOT 133 U/L (<34); CALCIUM LEVEL 7.4 MG/DL (8.5-10.1); CARBON DIOXIDE LEVEL 14 MMOL/L (20-31); CHLORIDE LEVEL 103 MMOL/L (98-107); CREATININE FOR GFR 0.32 MG/DL (0.55-1.30); GLOMERULAR FILTRATION RATE > 90.0 (>51); POTASSIUM SERUM 3.5 MMOL/L (3.5-5.1); SODIUM LEVEL 136 MMOL/L (136-145)
[2025-09-26] MEDS ORDERED: GLUCOSE 4 GM CHEW PO PRN (15:50)
[2025-09-26] MEDS ORDERED: GLUCAGON INJ 1 MG VIAL SC PRN (15:50)
[2025-09-26] MEDS: DEXTROSE 50% 50 ML SYRINGE IV PRN (16:23)
[2025-09-26] MEDS: DEXTROSE 50% 50 ML SYRINGE IV STA (16:46)
[2025-09-26 19:17] LABS: INR 1.37
[2025-09-26] MEDS: SODIUM BICARBONATE 150 MEQ in STERILE WATER LITER BAG 1,000 ML IV SCH (20:08)
[2025-09-27 01:11] LABS: CALCIUM LEVEL 7.8 MG/DL (8.5-10.1); CARBON DIOXIDE LEVEL 22 MMOL/L (20-31); CHLORIDE LEVEL 98 MMOL/L (98-107); CREATININE FOR GFR 0.30 MG/DL (0.55-1.30); GLOMERULAR FILTRATION RATE > 90.0 (>51); MAGNESIUM LEVEL 1.3 MG/DL (1.8-2.4); POTASSIUM SERUM 2.6 MMOL/L (3.5-5.1); SODIUM LEVEL 136 MMOL/L (136-145)
[2025-09-27 01:16] LABS: INR 1.15
[2025-09-27] MEDS: KCL 10MEQ/100ML SWI (KRUN) 10 MEQ in IV 1 EA IV SCH (02:03)
[2025-09-27 03:57] VITALS: BP 118/79; TEMP 97.3; O2SAT 97
[2025-09-27] MEDS: D5W/LR 1,000 ML IV SCH (04:25)
[2025-09-27] MEDS: MAG SULF 1GM/100ML (MAG RUN) 1 GM in IV 1 EA IV SCH ×2 (04:25→17:30)
[2025-09-27 07:38] LABS: PLATELET COUNT, AUTOMATED 315 10^3/uL (150-450)
[2025-09-27 07:56] LABS: INR 1.18
[2025-09-27 08:01] LABS: CALCIUM LEVEL 8.0 MG/DL (8.5-10.1); CARBON DIOXIDE LEVEL 25 MMOL/L (20-31); CHLORIDE LEVEL 96 MMOL/L (98-107); CREATININE FOR GFR 0.29 MG/DL (0.55-1.30); GLOMERULAR FILTRATION RATE > 90.0 (>51); MAGNESIUM LEVEL 2.2 MG/DL (1.8-2.4); PHOSPHORUS LEVEL 1.6 MG/DL (2.5-4.9); POTASSIUM SERUM 3.7 MMOL/L (3.5-5.1); SODIUM LEVEL 134 MMOL/L (136-145)
[2025-09-27 08:42] VITALS: BP 116/74; TEMP 97.3; O2SAT 98
[2025-09-27] MEDS ORDERED: PHYTONADIONE 5 MG TAB PO SCH (09:00)
[2025-09-27] MEDS: CALCIUM GLUCONATE 1,000 MG in DEXTROSE 5% (D5W) MINI-BAG PLU 100 ML IV ONE (09:17)
[2025-09-27 11:57] VITALS: BP 135/79; TEMP 97.1; O2SAT 98
[2025-09-27 12:37] LABS: CARBON DIOXIDE LEVEL 26 MMOL/L (20-31); CHLORIDE LEVEL 98 MMOL/L (98-107); POTASSIUM SERUM 3.4 MMOL/L (3.5-5.1); SODIUM LEVEL 135 MMOL/L (136-145)
[2025-09-27 12:59] LABS: CALCIUM LEVEL 8.2 MG/DL (8.5-10.1); CREATININE FOR GFR 0.30 MG/DL (0.55-1.30); GLOMERULAR FILTRATION RATE > 90.0 (>51); MAGNESIUM LEVEL 1.6 MG/DL (1.8-2.4)
[2025-09-27] MEDS ORDERED: MORPHINE 2 MG/ML 1 ML VIAL IV PRN (15:45)
[2025-09-27] MEDS: ISOVUE-300 61% 100 ML VIAL IV SCH (16:05)
[2025-09-27] MEDS: GLUCAGON INJ 1 MG VIAL IV SCH (16:05)
[2025-09-27] MEDS: NS (Normal Saline) 0.9% 1,000 ML IV SCH (16:05)
[2025-09-27] MEDS: LIDOCAINE 1% MDV 20 ML VIAL SC SCH (16:05)
[2025-09-27] MEDS ORDERED: MIDAZOLAM INJ 2 MG/2 ML VIAL IV PRN (16:05)
[2025-09-27] MEDS: LIDOCAINE 2% JELLY 6 ML SYRINGE TOP SCH (16:05)
[2025-09-27] MEDS: SODIUM CHLORIDE 0.9% 1000 ML XX SCH (16:05)
[2025-09-27] MEDS: KCL 20MEQ IN 100ML SWI (KRUN) 20 MEQ in IV 1 EA IV ONE (17:32)
[2025-09-27 19:34] VITALS: BP 106/56; TEMP 98.2; O2SAT 96
[2025-09-27 19:49] LABS: CALCIUM LEVEL 8.2 MG/DL (8.5-10.1); CARBON DIOXIDE LEVEL 27 MMOL/L (20-31); CHLORIDE LEVEL 97 MMOL/L (98-107); CREATININE FOR GFR 0.29 MG/DL (0.55-1.30); GLOMERULAR FILTRATION RATE > 90.0 (>51); MAGNESIUM LEVEL 2.0 MG/DL (1.8-2.4); POTASSIUM SERUM 3.4 MMOL/L (3.5-5.1); SODIUM LEVEL 134 MMOL/L (136-145)
[2025-09-27] MEDS: ACETAMINOPHEN *IV* 1,000 MG in IV 1 EA IV ONE (23:20)
[2025-09-27 23:45] VITALS: BP 92/56; TEMP 97; O2SAT 97
[2025-09-28 00:59] LABS: CALCIUM LEVEL 7.5 MG/DL (8.5-10.1); CARBON DIOXIDE LEVEL 28 MMOL/L (20-31); CHLORIDE LEVEL 97 MMOL/L (98-107); CREATININE FOR GFR 0.28 MG/DL (0.55-1.30); GLOMERULAR FILTRATION RATE > 90.0 (>51); MAGNESIUM LEVEL 1.8 MG/DL (1.8-2.4); POTASSIUM SERUM 2.8 MMOL/L (3.5-5.1); SODIUM LEVEL 134 MMOL/L (136-145)
[2025-09-28] MEDS: KCL 10MEQ/100ML SWI (KRUN) 10 MEQ in IV 1 EA IV SCH (01:18)
[2025-09-28] MEDS: MORPHINE 4 MG/ML 1 ML VIAL IV ONE (02:35)
[2025-09-28] MEDS: ONDANSETRON 4MG/2ML VIAL IV PRN (03:36)
[2025-09-28 03:44] VITALS: BP 147/92; TEMP 98; O2SAT 96
[2025-09-28 05:51] LABS: CALCIUM LEVEL 7.8 MG/DL (8.5-10.1); CARBON DIOXIDE LEVEL 27 MMOL/L (20-31); CHLORIDE LEVEL 97 MMOL/L (98-107); CREATININE FOR GFR 0.29 MG/DL (0.55-1.30); GLOMERULAR FILTRATION RATE > 90.0 (>51); MAGNESIUM LEVEL 1.7 MG/DL (1.8-2.4); POTASSIUM SERUM 3.0 MMOL/L (3.5-5.1); SODIUM LEVEL 135 MMOL/L (136-145)
[2025-09-28 07:30] VITALS: BP 127/78; TEMP 96.7; O2SAT 96
[2025-09-28] MEDS: ISOVUE-300 61% 100 ML VIAL XX ONE (08:14)
[2025-09-28] MEDS: MAG SULF 1GM/100ML (MAG RUN) 1 GM in IV 1 EA IV SCH (08:23)
[2025-09-28] MEDS: POTASSIUM CHLORIDE 10% LIQ 20MEQ/15ML UDC PEG ONE (08:23)
[2025-09-28] MEDS: KCL 20MEQ IN 100ML SWI (KRUN) 20 MEQ in IV 1 EA IV SCH (08:24)
[2025-09-28 08:41] LABS: PHOSPHORUS LEVEL 2.0 MG/DL (2.5-4.9)
[2025-09-28] MEDS ORDERED: MORPHINE 4 MG/ML 1 ML VIAL IV PRN (09:35)
[2025-09-28] MEDS: SODIUM PHOSPHATE INJ 30 MMOL in D5W 500 ML IV ONE (11:30)
[2025-09-28 11:35] VITALS: BP 108/80; TEMP 97; O2SAT 99
[2025-09-28] MEDS: NS (Normal Saline) 0.9% 1,000 ML IV SCH (12:07)
[2025-09-28 15:21] LABS: CALCIUM LEVEL 7.3 MG/DL (8.5-10.1); CARBON DIOXIDE LEVEL 26 MMOL/L (20-31); CHLORIDE LEVEL 95 MMOL/L (98-107); CREATININE FOR GFR 0.26 MG/DL (0.55-1.30); GLOMERULAR FILTRATION RATE > 90.0 (>51); POTASSIUM SERUM 4.1 MMOL/L (3.5-5.1); SODIUM LEVEL 132 MMOL/L (136-145)
[2025-09-28 15:49] VITALS: BP 135/84; TEMP 98; O2SAT 99
[2025-09-28 19:32] VITALS: BP 134/87; TEMP 97.4; O2SAT 100
[2025-09-28] MEDS: ENOXAPARIN 40 MG/0.4 ML SYRINGE (J1650 PER 10MG) SC SCH (20:10)
[2025-09-29] VITALS (14 sets, daily range): BP systolic 78–114; BP diastolic 54–81; TEMP 96.8–98.6; O2SAT 95–98
[2025-09-29] MEDS: ACETAMINOPHEN *IV* 1,000 MG in IV 1 EA IV PRN (06:20)
[2025-09-29 07:08] LABS: CALCIUM LEVEL 7.5 MG/DL (8.5-10.1); CARBON DIOXIDE LEVEL 29 MMOL/L (20-31); CHLORIDE LEVEL 95 MMOL/L (98-107); CREATININE FOR GFR 0.32 MG/DL (0.55-1.30); GLOMERULAR FILTRATION RATE > 90.0 (>51); MAGNESIUM LEVEL 1.8 MG/DL (1.8-2.4); POTASSIUM SERUM 3.5 MMOL/L (3.5-5.1); SODIUM LEVEL 135 MMOL/L (136-145)
[2025-09-29] MEDS: SODIUM CHLORIDE 0.9% 1000 ML XX SCH (07:40)
[2025-09-29] MEDS: ISOVUE-300 61% 100 ML VIAL IV SCH (08:36)
[2025-09-29] MEDS: LIDOCAINE 2% JELLY 6 ML SYRINGE TOP ONE (08:37)
[2025-09-29] MEDS: NS 500 ML IV ONE (09:08)
[2025-09-29] MEDS: NS (Normal Saline) 0.9% 1,000 ML IV SCH (09:08)
[2025-09-29] MEDS: D5W/0.9% SODIUM CHLORIDE 1,000 ML IV SCH (18:10)
[2025-09-29] MEDS: ACETAMINOPHEN *IV* 1,000 MG in IV 1 EA IV ONE (18:20)
[2025-09-29 19:16] LABS: CALCIUM LEVEL 7.2 MG/DL (8.5-10.1); CARBON DIOXIDE LEVEL 28 MMOL/L (20-31); CHLORIDE LEVEL 102 MMOL/L (98-107); CREATININE FOR GFR 0.39 MG/DL (0.55-1.30); GLOMERULAR FILTRATION RATE > 90.0 (>51); MAGNESIUM LEVEL 1.7 MG/DL (1.8-2.4); PHOSPHORUS LEVEL 2.4 MG/DL (2.5-4.9); POTASSIUM SERUM 3.4 MMOL/L (3.5-5.1); SODIUM LEVEL 139 MMOL/L (136-145)
[2025-09-29] MEDS: NS (Normal Saline) 0.9% 500 ML in IV 1 EA IV ONE ×2 (20:56→22:29)
[2025-09-30] VITALS (8 sets, daily range): BP systolic 84–118; BP diastolic 54–76; TEMP 96.7–98; O2SAT 95–100
[2025-09-30] MEDS: NS 500 ML IV ONE (04:13)
[2025-09-30 07:09] LABS: CALCIUM LEVEL 6.7 MG/DL (8.5-10.1); CARBON DIOXIDE LEVEL 26 MMOL/L (20-31); CHLORIDE LEVEL 106 MMOL/L (98-107); CREATININE FOR GFR 0.39 MG/DL (0.55-1.30); GLOMERULAR FILTRATION RATE > 90.0 (>51); MAGNESIUM LEVEL 1.5 MG/DL (1.8-2.4); PHOSPHORUS LEVEL 1.8 MG/DL (2.5-4.9); POTASSIUM SERUM 3.1 MMOL/L (3.5-5.1); SODIUM LEVEL 140 MMOL/L (136-145)
[2025-09-30] MEDS: MAG SULF 1GM/100ML (MAG RUN) 1 GM in IV 1 EA IV SCH (10:06)
[2025-09-30] MEDS: KCL 10MEQ/100ML SWI (KRUN) 10 MEQ in IV 1 EA IV SCH (13:35)
[2025-09-30 14:36] LABS: CALCIUM LEVEL 6.8 MG/DL (8.5-10.1); CARBON DIOXIDE LEVEL 25 MMOL/L (20-31); CHLORIDE LEVEL 103 MMOL/L (98-107); CREATININE FOR GFR 0.36 MG/DL (0.55-1.30); GLOMERULAR FILTRATION RATE > 90.0 (>51); MAGNESIUM LEVEL 2.7 MG/DL (1.8-2.4); POTASSIUM SERUM 2.8 MMOL/L (3.5-5.1); SODIUM LEVEL 137 MMOL/L (136-145)
[2025-09-30] MEDS: POTASSIUM PHOSPHATE INJ 30 MMOL in D5W 500 ML IV ONE (14:46)
[2025-09-30 23:47] LABS: CALCIUM LEVEL 6.9 MG/DL (8.5-10.1); CARBON DIOXIDE LEVEL 23 MMOL/L (20-31); CHLORIDE LEVEL 100 MMOL/L (98-107); CREATININE FOR GFR 0.27 MG/DL (0.55-1.30); GLOMERULAR FILTRATION RATE > 90.0 (>51); MAGNESIUM LEVEL 2.0 MG/DL (1.8-2.4); PHOSPHORUS LEVEL 2.6 MG/DL (2.5-4.9); POTASSIUM SERUM 3.7 MMOL/L (3.5-5.1); SODIUM LEVEL 133 MMOL/L (136-145)
[2025-10-01 03:51] VITALS: BP 100/67; TEMP 97.1; O2SAT 98
[2025-10-01 06:53] LABS: CALCIUM LEVEL 7.0 MG/DL (8.5-10.1); CARBON DIOXIDE LEVEL 23 MMOL/L (20-31); CHLORIDE LEVEL 103 MMOL/L (98-107); CREATININE FOR GFR 0.33 MG/DL (0.55-1.30); GLOMERULAR FILTRATION RATE > 90.0 (>51); MAGNESIUM LEVEL 1.8 MG/DL (1.8-2.4); PHOSPHORUS LEVEL 2.2 MG/DL (2.5-4.9); POTASSIUM SERUM 3.3 MMOL/L (3.5-5.1); SODIUM LEVEL 137 MMOL/L (136-145)
[2025-10-01 07:23] VITALS: BP 127/74; TEMP 97.6; O2SAT 97
[2025-10-01] MEDS: KCL 10MEQ/100ML SWI (KRUN) 10 MEQ in IV 1 EA IV SCH (08:27)
[2025-10-01] MEDS: POTASSIUM PHOSPHATE INJ 30 MMOL in D5W 500 ML IV ONE (11:17)
[2025-10-01 14:03] LABS: CALCIUM LEVEL 7.1 MG/DL (8.5-10.1); CARBON DIOXIDE LEVEL 22 MMOL/L (20-31); CHLORIDE LEVEL 102 MMOL/L (98-107); CREATININE FOR GFR 0.38 MG/DL (0.55-1.30); GLOMERULAR FILTRATION RATE > 90.0 (>51); PHOSPHORUS LEVEL 4.5 MG/DL (2.5-4.9); POTASSIUM SERUM 4.6 MMOL/L (3.5-5.1); SODIUM LEVEL 135 MMOL/L (136-145)
[2025-10-01 15:45] VITALS: BP 102/80; TEMP 97.5; O2SAT 100
[2025-10-01 20:04] VITALS: BP 123/74; TEMP 97.9; O2SAT 100
[2025-10-02] VITALS (7 sets, daily range): BP systolic 98–128; BP diastolic 65–91; TEMP 97–97.5; O2SAT 96–100
[2025-10-02 06:01] LABS: CALCIUM LEVEL 7.1 MG/DL (8.5-10.1); CARBON DIOXIDE LEVEL 22 MMOL/L (20-31); CHLORIDE LEVEL 105 MMOL/L (98-107); CREATININE FOR GFR 0.37 MG/DL (0.55-1.30); GLOMERULAR FILTRATION RATE > 90.0 (>51); MAGNESIUM LEVEL 1.6 MG/DL (1.8-2.4); PHOSPHORUS LEVEL 2.3 MG/DL (2.5-4.9); POTASSIUM SERUM 3.8 MMOL/L (3.5-5.1); SODIUM LEVEL 136 MMOL/L (136-145)
[2025-10-02] MEDS: MAG SULF 1GM/100ML (MAG RUN) 1 GM in IV 1 EA IV SCH (07:48)
[2025-10-02] MEDS: POTASSIUM PHOSPHATE INJ 20 MMOL in D5W 250 ML IV ONE (12:05)
[2025-10-02] MEDS ORDERED: ALBUTEROL 90 MCG/ACT 8 GM HFA INHALER INH PRN (15:50)
[2025-10-02] MEDS ORDERED: DOCUSATE SOD LIQ 100 MG/10 ML UDC GT PRN (15:50)
[2025-10-02] MEDS: busPIRone 5 MG TAB GT SCH (20:52)
[2025-10-03 03:44] VITALS: BP 126/91; TEMP 97.3; O2SAT 97
[2025-10-03 06:23] LABS: CALCIUM LEVEL 7.2 MG/DL (8.5-10.1); CARBON DIOXIDE LEVEL 22 MMOL/L (20-31); CHLORIDE LEVEL 103 MMOL/L (98-107); CREATININE FOR GFR 0.42 MG/DL (0.55-1.30); GLOMERULAR FILTRATION RATE > 90.0 (>51); MAGNESIUM LEVEL 2.0 MG/DL (1.8-2.4); PHOSPHORUS LEVEL 2.5 MG/DL (2.5-4.9); POTASSIUM SERUM 4.2 MMOL/L (3.5-5.1); SODIUM LEVEL 135 MMOL/L (136-145)
[2025-10-03 07:43] VITALS: BP 136/95; TEMP 98.3; O2SAT 99
[2025-10-03 12:10] VITALS: BP 154/90; TEMP 98.5; O2SAT 96
[2025-10-03] MEDS: ACETAMINOPHEN *IV* 1,000 MG in IV 1 EA IV ONE (12:39)
[2025-10-03] MEDS: PINK BISMUTH SUSP 524 MG/30 ML ORAL SYRINGE GT ONE (15:30)
[2025-10-03] MEDS ORDERED: DEXTROSE 50% 50 ML SYRINGE IV PRN (15:50)
[2025-10-03] MEDS ORDERED: GLUCOSE 4 GM CHEW PO PRN (15:50)
[2025-10-03] MEDS ORDERED: GLUCAGON INJ 1 MG VIAL SC PRN (15:50)
[2025-10-03 16:03] VITALS: BP 158/90; TEMP 97.9; O2SAT 100
[2025-10-03] MEDS: NS (Normal Saline) 0.9% 1,000 ML IV SCH (16:32)
[2025-10-03 19:50] VITALS: BP 133/87; TEMP 96.9; O2SAT 98
[2025-10-04 04:18] VITALS: BP 125/85; TEMP 98.3; O2SAT 98
[2025-10-04 07:29] LABS: CALCIUM LEVEL 7.1 MG/DL (8.5-10.1); CARBON DIOXIDE LEVEL 24 MMOL/L (20-31); CHLORIDE LEVEL 106 MMOL/L (98-107); CREATININE FOR GFR 0.41 MG/DL (0.55-1.30); GLOMERULAR FILTRATION RATE > 90.0 (>51); MAGNESIUM LEVEL 1.8 MG/DL (1.8-2.4); PHOSPHORUS LEVEL 2.3 MG/DL (2.5-4.9); POTASSIUM SERUM 4.1 MMOL/L (3.5-5.1); SODIUM LEVEL 137 MMOL/L (136-145)
[2025-10-04 07:47] VITALS: BP 116/69; TEMP 98.9; O2SAT 98
[2025-10-04 12:31] VITALS: BP 149/87; TEMP 98.6; O2SAT 100
[2025-10-04 16:00] VITALS: BP 139/66; TEMP 98.6; O2SAT 100
[2025-10-04] MEDS: ALTEPLASE 2 MG/2 ML VIAL XX ONE (18:31)
[2025-10-04 19:46] VITALS: BP 136/91; TEMP 97.5; O2SAT 100
[2025-10-04 23:59] VITALS: BP 128/92; TEMP 97.8; O2SAT 99
[2025-10-05 03:38] VITALS: BP 140/70; TEMP 97.5; O2SAT 99
[2025-10-05 07:03] LABS: CALCIUM LEVEL 7.2 MG/DL (8.5-10.1); CARBON DIOXIDE LEVEL 25 MMOL/L (20-31); CHLORIDE LEVEL 104 MMOL/L (98-107); CREATININE FOR GFR 0.37 MG/DL (0.55-1.30); GLOMERULAR FILTRATION RATE > 90.0 (>51); MAGNESIUM LEVEL 1.8 MG/DL (1.8-2.4); PHOSPHORUS LEVEL 2.2 MG/DL (2.5-4.9); POTASSIUM SERUM 3.5 MMOL/L (3.5-5.1); SODIUM LEVEL 137 MMOL/L (136-145)
[2025-10-05 07:58] VITALS: BP 115/75; TEMP 97.6; O2SAT 97
[2025-10-05] MEDS: CALCIUM GLUCONATE 1,000 MG in DEXTROSE 5% (D5W) MINI-BAG PLU 100 ML IV ONE (08:05)
[2025-10-05] MEDS: NEUTRA-PHOS 1.5 GM PACKET PEG SCH (09:33)
[2025-10-05 12:00] VITALS: BP 133/84; TEMP 97; O2SAT 100
[2025-10-05 16:00] VITALS: BP 133/85; TEMP 96.8; O2SAT 100
[2025-10-05 18:30] LABS: MAGNESIUM LEVEL 1.6 MG/DL (1.8-2.4); PHOSPHORUS LEVEL 2.3 MG/DL (2.5-4.9); POTASSIUM SERUM 3.6 MMOL/L (3.5-5.1)
[2025-10-05] MEDS: MAG SULF 1GM/100ML (MAG RUN) 1 GM in IV 1 EA IV SCH (20:55)
[2025-10-06 06:28] LABS: MAGNESIUM LEVEL 2.1 MG/DL (1.8-2.4); PHOSPHORUS LEVEL 2.5 MG/DL (2.5-4.9); POTASSIUM SERUM 3.5 MMOL/L (3.5-5.1)
[2025-10-06 08:00] VITALS: BP 118/77; TEMP 96.8; O2SAT 96
[2025-10-06] MEDS: ACETAMINOPHEN 500 MG TAB PO PRN (09:44)
[2025-10-06] MEDS: LIDOCAINE 1% MDV 20 ML VIAL SC ONE (13:20)
[2025-10-06] MEDS: SODIUM CHLORIDE 0.9% 1000 ML XX ONE (13:20)
[2025-10-06] MEDS: LIDOCAINE 2% JELLY 6 ML SYRINGE TOP ONE (13:52)
[2025-10-06] MEDS: ISOVUE-300 61% 100 ML VIAL IV ONE (14:01)
[2025-10-06 17:28] VITALS: BP 115/78; TEMP 98.9; O2SAT 97
[2025-10-06 18:54] LABS: MAGNESIUM LEVEL 1.8 MG/DL (1.8-2.4); PHOSPHORUS LEVEL 2.8 MG/DL (2.5-4.9); POTASSIUM SERUM 3.3 MMOL/L (3.5-5.1)
[2025-10-06 20:34] VITALS: BP 96/63; TEMP 97.5; O2SAT 97
[2025-10-07 06:43] LABS: MAGNESIUM LEVEL 1.6 MG/DL (1.8-2.4); PHOSPHORUS LEVEL 2.9 MG/DL (2.5-4.9); POTASSIUM SERUM 3.3 MMOL/L (3.5-5.1)
[2025-10-07] MEDS ORDERED: SODIUM CHLORIDE 0.9% INJ 10 ML SYR IV PRN (18:45)
[2025-10-08 04:43] VITALS: BP 114/74; TEMP 97.5; O2SAT 97
[2025-10-08 07:34] LABS: MAGNESIUM LEVEL 1.6 MG/DL (1.8-2.4); PHOSPHORUS LEVEL 2.5 MG/DL (2.5-4.9); POTASSIUM SERUM 3.4 MMOL/L (3.5-5.1)
[2025-10-08] MEDS: SODIUM CHLORIDE 0.9% INJ 10 ML SYR IV SCH (08:05)
[2025-10-08 08:30] VITALS: BP 101/65; TEMP 97.9; O2SAT 97
[2025-10-09 04:37] VITALS: BP 112/76; TEMP 97.6; O2SAT 98
[2025-10-09 16:44] LABS: MAGNESIUM LEVEL 1.6 MG/DL (1.8-2.4); PHOSPHORUS LEVEL 3.2 MG/DL (2.5-4.9); POTASSIUM SERUM 3.7 MMOL/L (3.5-5.1)
[2025-10-09] MEDS: POTASSIUM CHLORIDE 10% LIQ 20MEQ/15ML UDC PEG SCH (17:32)
[2025-10-09] MEDS: MAGNESIUM OXIDE 400 MG TAB PEG SCH (17:32)
[2025-10-09] MEDS: ONDANSETRON 4MG ORAL DISINTEGRATING TAB PO SCH (17:33)
[2025-10-09] MEDS: SCOPOLAMINE 1MG TRANSDERMAL PATCH TOP SCH (17:33)
[2025-10-10 03:21] VITALS: BP 138/91; TEMP 97.6; O2SAT 97
[2025-10-10 06:12] LABS: MAGNESIUM LEVEL 1.6 MG/DL (1.8-2.4); PHOSPHORUS LEVEL 3.9 MG/DL (2.5-4.9); POTASSIUM SERUM 4.1 MMOL/L (3.5-5.1)
[2025-10-10] MEDS: LOPERAMIDE 2 MG CAPLET PO PRN (12:12)
[2025-10-10] MEDS: ONDANSETRON 4MG ORAL DISINTEGRATING TAB PO PRN (17:20)
[2025-10-10 19:35] VITALS: BP 119/78; TEMP 97.8; O2SAT 99
[2025-10-11 03:45] VITALS: BP 111/77; TEMP 97.4; O2SAT 96
[2025-10-12 05:05] VITALS: BP 123/75; O2SAT 97
[2025-10-12 12:00] VITALS: BP 123/75; TEMP 97.7; O2SAT 100
[2025-10-13 04:36] VITALS: BP 124/79; TEMP 99.1; O2SAT 97
[2025-10-13] MEDS ORDERED: BISACODYL 10 MG SUPP PR PRN (13:10)
[2025-10-13] MEDS ORDERED: ATROPINE SULFATE 1% OPHTH SOLN 2 ML BTL SL PRN (13:10)
[2025-10-13] MEDS ORDERED: LORazepam 1 MG TAB PO PRN (13:10)
[2025-10-13] MEDS ORDERED: HYOSCYAMINE SULFATE 0.125 MG SUBL TABLET PO PRN (13:10)
[2025-10-18] MEDS ORDERED: LORA1TAB23 PO (10:20)
[2025-10-18] MEDS ORDERED: OXYC-517 PO (10:20)
== END 2025-10-18 11:52 | disposition hospice, home (50) | DRG 252 ==
LOC: M ED 19:45 → M ED INP 19:46 → M MS5PR 09-26 04:06 → OBSVTOIN 09-26 11:58 → M PCU 09-26 16:30 → M MSPAV 10-06 16:43
PROVIDERS: ADMIT Internal Medicine; ATTEND Student in an Organized Health Care Education/Training Program
PROC: 0DH63UZ Insertion of Feeding Device into Stomach, Percutaneous Approach (ICD-10-PCS; principal; 2025-09-27 16:00)
PROC: BW11YZZ Fluoroscopy of Abdomen and Pelvis using Other Contrast (ICD-10-PCS; 2025-09-29)
PROC: 0D2DXUZ Change Feeding Device in Lower Intestinal Tract, External Approach (ICD-10-PCS; 2025-10-06)
DX: K94.23 Gastrostomy malfunction (principal); E43 Unspecified severe protein-calorie malnutrition; C15.9 Malignant neoplasm of esophagus, unspecified; E88.89 Other specified metabolic disorders; E87.20 Acidosis, unspecified; E86.0 Dehydration; I10 Essential (primary) hypertension; E87.1 Hypo-osmolality and hyponatremia; E83.42 Hypomagnesemia; E83.39 Other disorders of phosphorus metabolism; J45.909 Unspecified asthma, uncomplicated; R63.4 Abnormal weight loss; I25.2 Old myocardial infarction; E87.6 Hypokalemia; R19.7 Diarrhea, unspecified; Z51.5 Encounter for palliative care; Z66 Do not resuscitate; Y83.1 Surgical operation with implant of artificial internal device as the cause of abnormal reaction of the patient, or of later complication, without mention of misadventure at the time of the procedure; Z87.891 Personal history of nicotine dependence; Z79.899 Other long term (current) drug therapy; Z88.1 Allergy status to other antibiotic agents; Z88.8 Allergy status to other drugs, medicaments and biological substances; Z92.21 Personal history of antineoplastic chemotherapy